=== PATIENT | male | born 1960 | race Caucasian/White ===

== ENCOUNTER 2019-03-01 06:23 | Day surgery (SDC) | payer OTHER ==
[2019-02-28 15:42] LABS: BASOPHILS % (AUTO) 0.8 % (0.0-5.0); EOSINOPHILS % (AUTO) 1.1 % (0.0-8.0); HEMATOCRIT 41.5 % (42-54); LYMPHOCYTES % (AUTO) 28.7 % (21.0-51.0); MEAN CORPUSCULAR HEMOGLOBIN 30.3 pg (27.0-33.0); MEAN CORPUSCULAR HGB CONC 33.6 g/dL (32.0-36.0); MEAN CORPUSCULAR VOLUME 90.4 fL (79-99); MONOCYTES % (AUTO) 7.3 % (3.0-13.0); NEUTROPHILS % (AUTO) 62.1 % (40.0-77.0); PLATELET COUNT (AUTO) 211 K/uL (130-400); RED BLOOD CELL COUNT(AUTO) 4.59 MIL/uL (4.50-6.20); RED CELL DISTRIBUTION WIDTH 13.1 % (11.0-15.5); WHITE BLOOD COUNT (AUTO) 5.7 K/uL (4.8-10.8)
[2019-02-28 15:48] VITALS: BP 140/71
[2019-02-28 15:50] LABS: CREATININE 1.4 mg/dL (0.5-1.5); POTASSIUM 4.2 mmol/L (3.5-5.1)
[2019-03-01] VITALS (11 sets, daily range): BP systolic 128–157; BP diastolic 58–86
[~2019-03-01] VITALS: Ht 182.9 cm; Wt 88.9 kg
[2019-03-01] MEDS: CEFAZOLIN SODIUM 1 GM VIAL IVP SCH ×2 (06:00→08:46)
[2019-03-01] MEDS ORDERED: LACTATED RINGERS 1000ML 1,000 ML IV ONE (07:01)
[2019-03-01] MEDS ORDERED: PROPOFOL 10 MG/ML 20ML VIAL IV ONE (08:29)
[2019-03-01] MEDS ORDERED: LIDOCAINE HCL-MPF 1% 5ML AMP IJ ONE (08:29)
[2019-03-01] MEDS ORDERED: MIDAZOLAM HCL 1 MG/ML 2ML VIAL ONE (08:29)
[2019-03-01] MEDS ORDERED: LIDOCAINE PF 2% 5ML ABBOJECT ONE (08:29)
[2019-03-01] MEDS ORDERED: LIDOCAINE HCL 4% LTA SOL 4 ML VIAL ONE (08:29)
[2019-03-01] MEDS ORDERED: FENTANYL CITRATE PF 50 MCG/1 ML 5ML AMP IV ONE (08:30)
[2019-03-01] MEDS ORDERED: EPHEDRINE SULFATE 50 MG/ML AMPULE ONE (09:00)
[2019-03-01] MEDS ORDERED: ROPIVACAINE 0.5% 5MG/ML 30ML IJ ONE (09:07)
[2019-03-01] MEDS ORDERED: EPINEPHRINE 1 MG/ML AMPULE ONE (09:08)
[2019-03-01] MEDS ORDERED: CEPH500B PO (10:01)
[2019-03-01] MEDS ORDERED: NAPR-1023 PO (10:01)
[2019-03-01] MEDS ORDERED: TYL3 PO (10:01)
--- NOTE | 2019-03-01 11:15 | NUR ---
DRESSING TO RIGHT KNEE IS CLEAN AND INTACT, PATIENT DENIES ANY PAIN OR DISCOMFORT. PER PATIENT HE DOES HAVE CRUTCHES AT HOME AND KNOWS HOW TO USE THEM.PRESCRIPTIONS X3 GIVEN TO PATIENT.
== END 2019-03-01 11:15 | disposition home or self-care (01) ==
LOC: DAH 06:23
PROVIDERS: ATTEND Orthopaedic Surgery
DX: M22.41 Chondromalacia patellae, right knee (principal); Z98.890 Other specified postprocedural states; M95.8 Other specified acquired deformities of musculoskeletal system
CPT/HCPCS: 29877; 36415; 80048; 85025; A4218; A4606; A4649 ×2; A4930; A6223; J0171; J0690; J2001; J2250; J2704; J2795; J3010; J3490 ×2; J7120 ×2